=== PATIENT | male | born 1985 | race Caucasian/White ===

== ENCOUNTER 2020-11-20 14:59 | Emergency (ER) | payer BC ==
[~2020-11-20] VITALS: Ht 177.8 cm; Wt 105.6 kg
[2020-11-20] MEDS ORDERED: ONDANSETRON 4MG/2ML VIAL IV ONE (15:30)
[2020-11-20] MEDS ORDERED: MORPHINE 4 MG/ML 1ML VIAL/SYRINGE (J2270) IV ONE (15:30)
[2020-11-20] MEDS ORDERED: NS 1,000 ML IV ONE (15:30)
--- NOTE | 2020-11-20 15:38 | REP ---
INDICATION: pain after fall, deformity. COMPARISON: None. TECHNIQUE: FOUR VIEWS OF THE RIGHT WRIST. FINDINGS: Four views of the right wrist demonstrate a dorsally displaced, comminuted, angulated fracture of the distal radial metaphysis. Lateral view demonstrates 64 degrees of apex ventral angulation. there is 13 mm of dorsal displacement. No distal radial or carpal fracture is appreciated. IMPRESSION: Angulated, comminuted, and dorsally displaced fracture of the distal radial metaphysis. <Electronically signed by Ryne Perez > 11/20/20 1531
--- NOTE | 2020-11-20 15:39 | REP ---
INDICATION: pain after fall, deformity. COMPARISON: None. TECHNIQUE: AP and lateral views of the right forearm are obtained. FINDINGS: AP and lateral views of the right forearm demonstrate the dorsally displaced angulated and comminuted fracture of the distal radial metaphysis described in the wrist radiographic series.. No other radial or ulnar fracture is seen. Study is otherwise unremarkable. .. IMPRESSION: Displaced comminuted fracture of the distal radius. No other fracture seen.. <Electronically signed by Ryne Perez > 11/20/20 [id number]
[2020-11-20] MEDS ORDERED: MORPHINE 2 MG/ML 1ML VIAL (J2270) IV ONE (17:15)
[2020-11-20] MEDS ORDERED: NS 1,000 ML IV SCH (18:39)
[2020-11-20] MEDS ORDERED: propofoL 200 MG/20 ML VIAL IV PRN (18:45)
[2020-11-20] MEDS ORDERED: KETAMINE HCL 200 MG/20 ML VIAL IV ONE (18:45)
[2020-11-20] MEDS ORDERED: propofoL 200 MG/20 ML VIAL IV ONE (19:15)
[2020-11-20] MEDS ORDERED: PERC5TAB12 PO (19:19)
[2020-11-20 19:20] VITALS: BP 123/84
[2020-11-20] MEDS ORDERED: PERCOCET 5MG/325MG TAB PO ONE (20:00)
[2020-11-20] MEDS ORDERED: OXYCODONE/APAP 5MG/325MG(BULK FOR ED) 1 TABLET PO ONE (20:00)
--- NOTE | 2020-11-21 08:01 | REP ---
INDICATION: wrist reduction. COMPARISON: Comparison radiographs are from 12/25 2 p.m. on this date.. TECHNIQUE: Nine views. 30.8 seconds of fluoroscopy time is reported. FINDINGS: A sequence of 9 last image hold fluoroscopically obtained spot radiographs of the right wrist document fracture reduction and casting. IMPRESSION: Procedural imaging. <Electronically signed by Ryne Perez > 11/21/20 0751
--- NOTE | 2020-11-22 16:44 | CR ---
CONSULTATION DATE: 11/20/2020 CHIEF COMPLAINT: Right distal radius fracture. HISTORY OF PRESENT ILLNESS: A 35-year-old male who was playing hockey at 2 p.m. He fell backwards. He fell on an outstretched wrist. He is right hand dominant. No prior pain or injury to the upper extremity. He sustained a closed, severely dorsally angulated distal radius fracture. PAST MEDICAL HISTORY: None. MEDICATIONS: Albuterol. ALLERGIES: No known drug allergies. PAST SURGICAL HISTORY: Intussusception surgery and nasal obstruction surgery. He also had a boxer's fracture possibly on the right side. 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 He is a nonsmoker. PHYSICAL EXAMINATION: Well appearing, 35-year-old man in no acute distress. He has an obvious closed deformity to the right distal radius. The forearm compartments are soft. No pain at the elbow. Obvious pain to the distal radius site. No pain throughout the hand. A strong radial pulse. The hand is warm and well perfused. Normal sensation and motor function of the median, radial, ulnar nerves as well as AIN/PIN. No other obvious injuries. IMAGING STUDIES: Radiographs reviewed, AP, lateral, right wrist. This shows an obvious dorsally angulated, displaced right distal radius fracture. ASSESSMENT AND PLAN: This 35-year-old man has severely angulated and dorsally displaced right distal radius fracture. We discussed pros and cons, risks and benefits of conservative management versus closed reduction and casting. He wished to go ahead with closed reduction and casting. I performed this for him today under conscious sedation and achieved an adequate reduction. Followup in the office with him in one week's time. Get radiographs in the cast. I did inform him about in my opinion moderate risk of redisplacement in the cast and possible still a need for open reduction and internal fixation. I look forward to see him in followup. PROCEDURE NOTE: I discussed the pros and cons, risks and benefits of going ahead with the right wrist closed reduction and casting for this dorsally angulated distal radius fracture. The possible risks include but are not limited to failure to achieve and maintain a closed reduction, damage to surrounding structures, neurovascular injury, cast rotation, cast hall and other risks. He wished to go ahead. He signed the consent form for the procedure. We did a preprocedure timeout. Conscious sedation was achieved by the emergency department physician. I performed longitudinal traction and direct manipulation of the fracture. This was slightly unstable. We placed a below elbow circumferential cast with plaster of Arin, below elbow fashion, appropriately padded. I used three point molding, one point directly over the fracture, placing one point volar and proximal to this. I used live mini-C-arm fluoroscopy to achieve proper reduction and molding points. The cast was allowed to fully harden. Final radiographs were taken and saved onto the system with appropriate reduction of the angulation and displacement. The patient was neurovascularly intact pre and post-procedure with normal sensation, motor function of the fingers. The fingers were warm and well perfused. The patient will be discharged home with appropriate followup instructions, cast care instructions, followup in a week's time and pain medications per the emergency department physician reservations agent.
== END 2020-11-20 19:50 | disposition home or self-care (01) ==
LOC: M ED 14:59
DX: S52.501A Unspecified fracture of the lower end of right radius, initial encounter for closed fracture (principal); V00.211A Fall from ice-skates, initial encounter; Y92.330 Ice skating rink (indoor) (outdoor) as the place of occurrence of the external cause; Y93.22 Activity, ice hockey
CPT/HCPCS: 25605; 73090; 73110; 93041; 94760; 96361; 96374; 96375; 96376; 99152; 99285; J2270; J2405

== ENCOUNTER → 2020-11-26 | Outpatient (CLI) | payer BC ==
[~2020-11-26] MED LIST: ALBU8.5H INH; PERC5TAB12 PO
--- NOTE | 2020-11-26 13:21 | REP ---
INDICATION: RIGHT WRIST PAIN. COMPARISON: Post reduction 11/20/2020, fracture film 11/20/2020. TECHNIQUE: Two views FINDINGS: Overlying plaster cast somewhat limits evaluation of the fracture site but the post reduction alignment is grossly maintained. Distal radial metaphyseal impacted fracture noted and a tiny ulnar styloid avulsion suggested as well. No significant angulation the carpal bones and metacarpals intact. IMPRESSION: 1. The post reduction alignment is maintained within plaster cast at this time. <Electronically signed by Vinod Lopes > 11/26/20 5501
== END ==
LOC: M SOG 09:50
PROVIDERS: ATTEND Orthopaedic Surgery Sports Medicine
DX: S52.591A Other fractures of lower end of right radius, initial encounter for closed fracture (principal); X58.XXXD Exposure to other specified factors, subsequent encounter

== ENCOUNTER → 2020-11-26 | Outpatient (CLI) | payer BC | LOC: M LABSMTC 10:43 | PROVIDERS: ATTEND Anesthesiology | DX: Z01.812 Encounter for preprocedural laboratory examination (principal); Z20.822 Contact with and (suspected) exposure to COVID-19 ==